=== PATIENT | male | born 1950 | race Two or more races ===

== ENCOUNTER 2017-08-19 10:43 | Outpatient (RCR) | payer MEDICARE ==
[2015-01-18 10:47] VITALS: Wt 105.0 kg
[2017-08-13 10:23] LABS: PLATELET COUNT, AUTOMATED 167 K/uL (150-450)
[2017-08-13 17:20] VITALS: BP 136/92
[~2017-08-19 10:43] MED LIST: ATOR20TA65 PO; CYAN1TAB68 PO; CYAN50LO2 PO; DOCU-202 PO; GABA-549 PO; LIDO15CR8 TP; LIRA0.6P3 SQ; LISI5TAB25 PO; LUTE10TA3 PO; PER PO; TAMS0.4C70 PO
[2017-08-19 11:15] VITALS: BP 143/99
[2017-08-19] MEDS ORDERED: DAPA10TA PO (11:18)
--- NOTE | 2017-08-19 16:32 | ONCOLOGY FOLLOW UP NOTE ---
EVENT DATE: August 19, 2017 DIAGNOSES 1. Stage IIIA (pT2 pn1B m0) rectal adenocarcinoma. 2. Chemotherapy induced neuropathy. 3. History of pelvic abscess status post drainage, September,. 4. Hypertension. 5. Hypercholesterolemia. CHIEF COMPLAINT The patient is here today for followup of his rectal adenocarcinoma. ONCOLOGY HISTORY The patient is a 67-year-old male. PRESENTATION Abnormal screening colonoscopy done March 28, 2012 which revealed a fungating , ulcerated, nonobstructive mass in the rectum. Biopsy of that mass was done. There was a sessile polyp also found on the ascending colon. STAGING WORKUP CT scan abdomen and pelvis done on March 29, 2012 revealed a tiny, calcified granuloma in the right lower lobe of the lung, at least four tiny hypodense liver lesions were present, too small to characterize. There was irregular soft tissue density in the rectum, compatible with the mass noted on the colonoscopy. No soft tissue abnormality, lymphadenopathy or fluid identified in the perirectal fat planes. The prostate was mildly enlarged. PROCEDURES Rectosigmoid colon segment resection done on July 11, 2012. PATHOLOGY 1. Pathology from the biopsy during the colonoscopy done on March 28, 2012 revealed a moderately differentiated adenocarcinoma arising in a tubulovillous adenoma. Biopsy of the polyp in the ascending colon revealed hyperplastic polyp. 2. Pathology from the rectosigmoid colon segmental resection with ABR with end colostomy, done on July 11, 2012 showed 1 cm adenocarcinoma, low grade, well to moderately differentiated with tumor focally involving the muscularis propria. Margins were negative. No tumor deposits. Two out of twelve lymph nodes came back positive for metastasis. There was also tubulovillous adenoma, 2 cm with high grade dysplasia. STAGE Stage IIIA (pT2 pN1 BM0.) TREATMENT 1. Neoadjuvant chemo radiation and the patient received Xeloda with radiation therapy, completed in May,. 2. Adjuvant Xelox chemotherapy with capecitabine and oxaliplatin received between November, through April, and the patient received eight cycles , complicated with neuropathy. HISTORY OF PRESENT ILLNESS Patient is here today for followup of his rectal adenocarcinoma. He is doing fine currently except having some diarrhea from his recent change in his antidiabetic with Januvia. Other than that he is really doing very well at this time. PAST MEDICAL HISTORY 1. Rectal adenocarcinoma. 2. Chemotherapy induced neuropathy. 3. Pelvic abscess following colonic surgery. 4. Hypertension. 5. Hypercholesterolemia. PAST SURGICAL HISTORY 1. Rectosigmoid colon segmental resection done July 11, 2012. 2. Pelvic abscess drainage, September 2012. FAMILY HISTORY Father had a history of colon cancer in his 60s. SOCIAL HISTORY The patient is with three children. He is unemployed currently because of his neuropathy. He drinks about three to four beers per week. He quit smoking 25 years ago after 15 pack years of tobacco abuse with one pack a day for 15 years. He smokes marijuana sometimes. CURRENT MEDICATIONS 1. Lisinopril 5 mg daily. 2. Atorvastatin 40 mg daily. 3. Flomax 10 mg daily. 4. Gabapentin twice daily. ALLERGIES PHENOBARBITAL results in a rash. REVIEW OF SYSTEMS CONSTITUTIONAL: No appetite or weight change. No fever, chills or sweating. No recent infection. HEENT: Ears: No tinnitus or hearing problem. Nose: He has occasional epistaxis. Throat: No sore throat or mouth ulcers. Eyes: No diplopia or visual changes. RESPIRATORY: He has exertional shortness of breath. CARDIOVASCULAR: No chest pain, orthopnea, or paroxysmal nocturnal dyspnea (PND) . No edema. No palpitations. GASTROINTESTINAL: No nausea or vomiting. He has occasional diarrhea from Januvia. No constipation. No change in bowel movements. No heartburn or swallowing difficulties. No abdominal pain. No jaundice. No hematemesis, melena or rectal bleeding. GENITOURINARY: No hematuria or dysuria. MUSCULOSKELETAL: He has pain in the ankles and knees. NEUROLOGICAL: He has tingling and numbness in the hands and feet. HEMATOLOGIC/LYMPHATIC: He is weak, tired and fatigued. SKIN: No skin rash or lumps. PSYCHIATRIC: No anxiety or depression. PHYSICAL EXAMINATION GENERAL: Looks stable. Well-developed, well-nourished, and in no acute distress. VITAL SIGNS: Blood pressure 143/99, pulse 85 per minute, respirations 16 per minute, temperature 97.4, pulse ox 95% on room air. HEENT: Head: Atraumatic. No sinus tenderness to palpation. Eyes: No icterus or conjunctivitis. Mouth and throat: No oral thrush or mucositis. NECK: Supple. No cervical or supraclavicular lymphadenopathy. LUNGS: Clear to auscultation and percussion bilaterally. HEART: Regular rate and rhythm. No gallops, murmurs, clicks or rubs. ABDOMEN: Soft and lax. Stoma is noted and there is no evidence of infection. EXTREMITIES: No cyanosis, clubbing or edema. LYMPHATICS: No peripheral lymphadenopathy. NEUROLOGICAL: Conscious, alert and oriented times three. No focal motor or sensory deficits. PSYCHIATRIC: Mood and affect appear normal. SKIN: No skin rash, bruise or purpuric eruption. DIAGNOSTIC DATA CBC showed a white count of 5.1, hemoglobin 17.4, hematocrit 50.4, platelets 167 ,000. Chem panel totally normal except carbon dioxide 20, blood sugar 251. AST 47, ALT 57. CEA is normal at 1.2. ASSESSMENT 1. Stage IIIA (pT2 pN1 cM0) rectal adenocarcinoma status post neoadjuvant chemotherapy with radiation therapy completed May 2012. Patient received Xeloda during radiation therapy. This was followed by segmental rectosigmoid colon resection with abdominoperineal resection with end colostomy done July 11, 2012 for a tumor which invaded the muscularis propria. Two out of 12 lymph nodes were positive for metastasis and negative margins. Following surgery he received eight cycles of XELOX with capecitabine and oxaliplatin, and received his chemotherapy between November 2012 through April 2013. He is currently in remission. CEA currently s 1.2, which is normal and stable. The patient is leaving in the winter to [place] and I am planning to see him in a year from now with CBC, chem panel and CEA. . 2. 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 He is on Lyrica and he is using also lidocaine cream. . 3. Hypertension, on treatment. PLAN 1. Continue followup. 2. Patient to return in one year with CBC, chem panel and CEA. 3. Continue Lyrica 75 mg twice daily. 4. Patient is to contact us for any new concern or complaints. MTDD
== END 2017-08-25 14:03 | disposition home or self-care (01) ==
LOC: ONC 10:43
PROVIDERS: ATTEND Internal Medicine Hematology
DX: C20 Malignant neoplasm of rectum (principal); G62.0 Drug-induced polyneuropathy; I10 Essential (primary) hypertension; E78.00 Pure hypercholesterolemia, unspecified; Z87.891 Personal history of nicotine dependence
CPT/HCPCS: 36415; 82378; 85025; G0463; 82040; 82247; 82310; 82374; 82435; 82565; 82947; 84075; 84132; 84155; 84295; 84450; 84460; 84520; 99212

== ENCOUNTER 2018-09-01 12:38 | Emergency (ER) | payer MEDICARE ==
[2015-01-18 10:47] VITALS: Wt 113.4 kg
[~2018-09-01 12:38] MED LIST changes: +DAPA10TA PO; +PIOG45TA65 PO
--- NOTE | 2018-09-01 12:43 | ER Report ---
History and Physical Time Seen By MD: 12:39 HPI/ROS CHIEF COMPLAINT: Suture removal HISTORY OF PRESENT ILLNESS: This is a 68-year-old male presents to emergency department for suture removal. Patient was seen and evaluated in the emergency department about 10 days ago for a laceration to his left knee. He's had no fevers, no drainage, no aches or chills. Notes some mild redness around the sutures otherwise unremarkable. Allergies: Coded Allergies: No Known Drug Allergies (Unverified , 09/01/18) Home Meds Reported Medications Pioglitazone Hcl (PIOGLITAZONE HCL) 45 Mg Tablet, 45 MG PO QDAY 08/23/18 Atorvastatin Calcium (ATORVASTATIN CALCIUM) 20 Mg Tablet, 1 TAB PO HS, TAB 10/25/13 Lisinopril (LISINOPRIL) 5 Mg Tablet, 5 MG PO BID 10/10/13 Gabapentin (GABAPENTIN) 300 Mg Capsule, 600 MG PO BID, CAPSULE 900 mg QAM, 600mg at Noon, and 900mg QHS 10/10/13 Past Medical/Surgical History The patient has a past surgical history of hypertension, hypercholesterolemia, colonoscopy, hepatitis B, intermittent difficulty urinating secondary to enlarged prostate, arthritis, right wrist fracture, dentures, wears glasses, type II diabetes, colorectal cancer, chemotherapy, umbilical hernia repair, colectomy. Reviewed Nurses Notes: Yes Hx Smoking: Yes (SMOKED 15 YRS ABOUT 1 PPD) Smoking Status: Former Smoker Hx Substance Use Disorder: Yes Hx Alcohol Use: Yes Constitutional Vital Sign - Last 24 Hours 09/01/18 12:44 Temp 97.9 Pulse 108 Resp 20 B/P (MAP) 118/81 Pulse Ox 91 O2 Delivery Room Air Physical Exam General appearance: Alert no distress. Respiratory: Chest is non tender, lungs are clear to auscultation. Cardiac: Regular rate and rhythm. Integumentary: 3 interrupted sutures to the left anterior knee. No drainage, approximate, no erythema or cellulitis. DIFFERENTIAL DIAGNOSIS: After history and physical exam differential diagnosis was considered for suture removal. Medical Decision Making ED Course/Re-evaluation ED Course The patient was admitted to room. History and physical obtained. Differential diagnoses were considered. 3 simple interrupted sutures were removed from the left anterior knee, Steri-Strips were applied, patient was instructed to monitor for signs of infection, turned the Steri-Strips is appropriate return to ER for worsening symptoms or any other concerns, he expressed understanding of this discharged home. Decision to Disposition Date: Sep 01, 2018 Decision to Disposition Time: 12:53 Depart Departure Latest Vital Signs Vital Signs Date Time Temp Pulse Resp B/P (MAP) Pulse Ox O2 Delivery O2 Flow Rate FiO2 09/01/18 12:44 97.9 108 20 118/81 91 Room Air Impression: Primary Impression: Visit for suture removal Condition: Improved Disposition: HOME OR SELF-CARE Referrals: ABIEL PADILLA DO (PCP) Patient Instructions: Acute Wound Care (ED) Additional Instructions: Continue to monitor they wound for signs of infection such as pus, red streaks moving up her leg, fevers, aches or chills. If you notice any of these please return to the ER immediately for reevaluation. Please keep the Steri-Strips on, as the edges loosen tremor as appropriate, ultimately the Steri-Strips will come off on their own. Be sure to drink plenty of water. Get plenty of rest. Continue monitoring your blood sugars closely. Follow-up with your primary care provider in one week for reevaluation. Return to the ER for any other concerns or worsening symptoms. NYA MENDEZ [employer] ARTIST-BC Sep 01, 2018 12:43
[2018-09-01 12:44] VITALS: BP 118/81
== END 2018-09-01 12:58 | disposition home or self-care (01) ==
LOC: ER 12:44
DX: S81.012D Laceration without foreign body, left knee, subsequent encounter (principal)
CPT/HCPCS: 99281